=== PATIENT | male | born 1965 | race Two or more races ===

== ENCOUNTER 2019-02-06 02:27 | Emergency (ER) | payer OTHER ==
[~2019-02-06] VITALS: Ht 175.3 cm; Wt 74.8 kg
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
--- NOTE | 2019-02-06 04:44 | NUR ---
[employer] officers at the bed side. Patient is medically clear to be discharged and ok to book. Written and verbal after care instructions given. Patient verbalizes understanding of instruction.
--- NOTE | 2019-02-06 05:00 | NUR ---
Patient discharged under custody to [facility] in stable condition. Written and verbal after care instructions given. Patient verbalizes understanding of instruction. pt was provided w. a warm shower and some clothes prior to d/c
[2019-02-06 05:25] VITALS: BP 115/71
== END 2019-02-06 05:00 ==
LOC: ER 02:31
DX: Z00.8 Encounter for other general examination (principal); Z59.0 Homelessness; F17.200 Nicotine dependence, unspecified, uncomplicated

== ENCOUNTER 2020-07-29 14:58 | Emergency (ER) | payer SELFPAY ==
[~2020-07-29] VITALS: Ht 180.3 cm; Wt 71.2 kg
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
--- NOTE | 2020-07-29 15:11 | NUR ---
CALLED POISON CONTROL [phone]
[2020-07-29] MEDS: IV NS 0.9% 1,000 ML BAG IV ONE ×2 (15:15→15:28)
--- NOTE | 2020-07-29 15:27 | NUR ---
RT AT BEDSIDE FOR ABG.
[2020-07-29 15:28] LABS: BASOPHILS # (AUTO) 0.1 /CMM (0.0-0.2); BASOPHILS % (AUTO) 1.2 % (0.0-2.0); EOSINOPHILS % (AUTO) 1.6 % (0.0-6.0); HEMATOCRIT 40 % (39-51); HEMOGLOBIN 13.4 g/dL (13.5-17.5); LYMPHOCYTES % (AUTO) 15.5 % (20.0-44.0); MEAN CORPUSCULAR HGB CONC 34 g/dl (31.0-36.0); MEAN CORPUSCULAR VOLUME 93 fL (80-96); MONOCYTES # (AUTO) 0.7 /CMM (0.1-1.30); MONOCYTES % (AUTO) 10.6 % (2.0-12.0); NEUTROPHILS # (AUTO) 4.8 /CMM (1.8-8.9); NEUTROPHILS % (AUTO) 71.1 % (43.0-81.0); PLATELET COUNT (AUTO) 159 /CMM (150-450); RED BLOOD CELL COUNT(AUTO) 4.29 MIL/uL (4.5-6.0); WHITE BLOOD COUNT (AUTO) 6.7 K/uL (4.3-11.0)
--- NOTE | 2020-07-29 15:33 | NUR ---
PATIENT AA/OX4, VERBALLY RESPONSIVE. RESISTIVE TO CARE. REFUSING CATHETER. REFUSING TO GIVE URINE AT THIS TIME.
[2020-07-29 15:36] LABS: ABG BASE EXCESS -3.4 mmol/L; ABG OXYGEN SATURATION 97.8 % (92.0-98.5); ABG PCO2 43.5 mmHg (35.0-45.0); ABG PH 7.331 (7.350-7.450); ABG PO2 487.7 mmHg (75.0-100.0); AaDO2 181.8 mmHg; COHb 0.1 % (0.5-1.5); MetHb 31.4 % (0.0-1.5); SITE, ABG Right Radial; VENT MODE, BG NRB MASK 15L 100%
[2020-07-29 15:46] LABS: ALANINE AMINOTRANSFERASE 179 U/L (12-78); ALKALINE PHOSPHATASE 59 U/L (46-116); ASPARTATE AMINOTRANSFERASE 87 U/L (15-37); BILIRUBIN,DIRECT 0.3 mg/dL (0.0-0.2); BILIRUBIN,TOTAL 1.1 mg/dL (0.2-1.0); CALCIUM, SERUM 8.4 mg/dL (8.5-10.1); CARBON DIOXIDE 24 mmol/L (21-32); CHLORIDE 108 mmol/L (98-107); CREATININE 1.4 mg/dL (0.6-1.3); GLUCOSE 143 mg/dL (74-106); POTASSIUM 3.5 mmol/L (3.5-5.1); SODIUM SERUM 144 mmol/L (136-145); TOTAL PROTEIN, SERUM 7.3 g/dL (6.4-8.2); UREA NITROGEN, BLOOD 22 mg/dL (7-18)
[2020-07-29 15:49] LABS: ACETAMINOPHEN < 2 ug/ml (10-30); ALCOHOL, BLOOD < 3 mg/dL (0-0)
[2020-07-29] MEDS ORDERED: METHYLENE BLUE AMP (1ML) 1 ML AMPUL IJ ONE (16:00)
[2020-07-29] MEDS: D5W IV ONE (16:23)
[2020-07-29] MEDS: METHYLENE BLUE IV ONE (16:23)
--- NOTE | 2020-07-29 16:23 | NUR ---
GOT BED 257
--- NOTE | 2020-07-29 16:23 | NUR ---
PATIENT AWAKE AND ALERT, VERBALLY RESPONSIVE O2 SAT ON 89-91% ON 15LPM VIA NRB. METHYLENE BLUE STARTED.
--- NOTE | 2020-07-29 16:28 | NUR ---
PATIENT IS REFUSING TO GIVE URINE SAMPLE. WARM BLANKETS PROVIDED.
--- NOTE | 2020-07-29 16:45 | NUR ---
Natural Science Manager note: This HABILITATION ASSISTANT met with Dr. Obando in the ED to discuss social work manager needs for the patient. Dr. Obando stated that patient had ingested jungle juice, but that it was not a suicidal attempt. Dr. Obando stated that patient will be admitted to the hospital, and that poison control has been contacted. Natural Science Manager will follow-up with the patient after admission to the acute hospital.
--- NOTE | 2020-07-29 16:49 | NUR ---
SPO2 IMPROVED, NOW ON 98% ON 15LPM VIA NRB.
--- NOTE | 2020-07-29 16:50 | NUR ---
PATIENT'S GIRLFRIEND AT BEDSIDE. PATIENT IS REFUSING TO STAY IN THE HOSPITAL. REFUSING ANY FURTHER TREATMENT. PATIENT IS NOW A/OX4, BREATHING EVEN AND UNLABORED, ON ROOM AIR WITH SPOW OF 99%. INFORMED DR. PALACIOS RE: LEAVING AMA.
--- NOTE | 2020-07-29 16:58 | NUR ---
DR. PALACIOS AT BEDSIDE EXPLAINING RISKS AND BENEFITS OF LEAVING AMA INCLUDING . PATIENT VERBALIZED UNDERSTANDING.
[2020-07-29] MEDS ORDERED: IV NS 0.9% 1,000 ML IV PRN (17:00)
[2020-07-29] MEDS ORDERED: ONDANSETRON HCL/PF 4 MG/2 ML VIAL IVP PRN (17:00)
--- NOTE | 2020-07-29 17:10 | NUR ---
Tooling Supervisor note: This COUNTY JUDGE was informed by TRACY Dong that patient was leaving the ED AMA. This COUNTY JUDGE met with patient, as he is homeless, and offered patient homeless community resources. Patient was receptive of there resources, and accepted the packet. Patient signed the homeless patient waiver form, and this COUNTY JUDGE filed the form in patient's ED chart.
--- NOTE | 2020-07-29 17:15 | NUR ---
PATIENT A/OX4, BREATHING EVEN AND UNLABORED NO SOB NOTED, NEEDS ATTENDED. GF AT BEDSIDE. AMBULATORY WITH STEADY GAIT. IV removed. Catheter intact and site benign. Pressure and 4x4 applied to site. No bleeding noted. Patient given written and verbal discharge instructions. Patient verbalizes understanding of instructions. Patient is ambulatory with steady gait. Refuses offer of fdc placement. Patient given list of available shelters in surrounding area.
[2020-07-29 17:16] VITALS: BP 106/69
== END 2020-07-29 17:17 | disposition home or self-care (01) ==
LOC: ER 14:58
DX: D74.8 Other methemoglobinemias (principal); T46.3X5A Adverse effect of coronary vasodilators, initial encounter; R11.10 Vomiting, unspecified; F17.200 Nicotine dependence, unspecified, uncomplicated; Z59.0 Homelessness; Y92.89 Other specified places as the place of occurrence of the external cause
CPT/HCPCS: 36415; 36600 ×2; 71045; 80048; 80076; 80143; 80320; 82803; 83605; 85025; 93005; 96361; 96374; 99291; J7030; J7060; G0480; Q9968

== ENCOUNTER 2022-06-12 05:23 | Emergency (ER) | payer SELFPAY ==
[~2022-06-12] VITALS: Ht 175.3 cm; Wt 77.1 kg
[2022-06-12] MEDS ORDERED: TDAP [DIPH/PERTUSSIS/TET] 0.5 ML VIAL IM ONE (05:37)
[2022-06-12] MEDS ORDERED: ACETAMINOPHEN ES 500 MG TABLET ONE (05:37)
[2022-06-12] MEDS: TDAP [DIPH/PERTUSSIS/TET] 0.5 ML VIAL IM ONE (05:43)
[2022-06-12] MEDS: ACETAMINOPHEN 325 MG TABLET PO ONE (05:43)
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
--- NOTE | 2022-06-12 06:06 | NUR ---
LAB REP AT PT'S BEDSIDE
[2022-06-12] MEDS ORDERED: AMOX-427 PO (06:16)
--- NOTE | 2022-06-12 06:40 | NUR ---
Patient discharged to home in stable condition. Written and verbal after care instructions given. Patient verbalizes understanding of instruction.
[2022-06-12 06:43] VITALS: BP 121/81
== END 2022-06-12 06:43 | disposition home or self-care (01) ==
LOC: ER 05:26
DX: S61.250A Open bite of right index finger without damage to nail, initial encounter (principal); F17.200 Nicotine dependence, unspecified, uncomplicated; Z59.00 Homelessness unspecified; Y04.1XXA Assault by human bite, initial encounter; Y93.89 Activity, other specified; Y92.89 Other specified places as the place of occurrence of the external cause; Y99.8 Other external cause status
CPT/HCPCS: 99283; 29130; 90471; 90715; 73130; A6403